=== PATIENT | female | born 1995 | race Asian ===

== ENCOUNTER 2021-12-08 21:42 | Emergency (ER) | payer OTHER ==
[~2021-12-08] VITALS: Ht 162.6 cm; Wt 62.6 kg
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
[2021-12-09] MEDS ORDERED: IBUPROFEN 400 MG TABLET PO ONE
--- NOTE | 2021-12-09 00:03 | NUR ---
WAIVER SIGNED BY PT
[2021-12-09] MEDS ORDERED: IBUPROFEN 400 MG TABLET ONE (00:05)
--- NOTE | 2021-12-09 00:08 | NUR ---
PT TAKEN FOR CT SCAN
--- NOTE | 2021-12-09 01:35 | NUR ---
FOLLOWED UP WITH [facility] REGARDING IMAGING RESULT
--- NOTE | 2021-12-09 02:39 | NUR ---
CALLED [facility] TO FOLLOW UP ON CT READ. 15-20 MIN MORE
--- NOTE | 2021-12-09 03:14 | NUR ---
SPOKE WITH NATALIE FROM [facility] REGARDING IMAGING READ. STILL BEING READ AT THIS TIME.
--- NOTE | 2021-12-09 03:59 | NUR ---
FOLLOWED UP WITH [facility] PER ONLINE MERCHANT MATY SHE WILL TALK TO DR GROSS.
--- NOTE | 2021-12-09 04:19 | NUR ---
Patient discharged to home in stable condition. Written and verbal after care instructions given. Patient verbalizes understanding of instruction.
[2021-12-09 04:20] VITALS: BP 125/70
== END 2021-12-09 04:22 | disposition home or self-care (01) ==
LOC: ER 21:47
DX: S16.1XXA Strain of muscle, fascia and tendon at neck level, initial encounter (principal); S39.012A Strain of muscle, fascia and tendon of lower back, initial encounter; Z60.2 Problems related to living alone; V89.2XXA Person injured in unspecified motor-vehicle accident, traffic, initial encounter; Y93.89 Activity, other specified; Y92.89 Other specified places as the place of occurrence of the external cause; Y99.8 Other external cause status
CPT/HCPCS: 70450-TC; 72125-TC; 72131-TC